=== PATIENT | male | born 1970 | race African-American/Black ===

== ENCOUNTER → 2019-02-05 | Outpatient (CLI) | payer MEDICARE, MEDICAID | END | disposition home or self-care (01) | LOC: CARD 09:41 | PROVIDERS: ATTEND Psychiatry & Neurology Neurology | DX: G40.919 Epilepsy, unspecified, intractable, without status epilepticus (principal) ==

== ENCOUNTER 2022-10-17 13:15 | Emergency (ER) | payer MEDICARE, MEDICAID ==
[~2022-10-17] VITALS: Ht 172.7 cm; Wt 86.0 kg
[2022-10-17 13:22] VITALS: BP 166/84
[2022-10-17 15:13] LABS: CHLORIDE 99 mEq/L (98-107)
[2022-10-17 15:19] LABS: BASOPHILS % 0.6 % (0.0-2.0); EOSINOPHILS % 0.1 % (0.0-5.0); HEMATOCRIT. 41.3 % (42.0-52.0); HEMOGLOBIN. 13.8 g/dL (14.0-18.0); LYMPHOCYTES % 17.7 % (20.0-50.0); MEAN CORPUSCULAR HEMOGLOBIN 28.6 pg (28.0-32.0); MEAN CORPUSCULAR VOLUME 85.9 fL (80.0-94.0); MEAN PLATELET VOLUME 8.2 fl (7.4-10.4); MONOCYTES % 7.7 % (2.0-8.0); NEUTROPHILS % 73.9 % (40.0-76.0); PLATELET 224 x1000/uL (130-400); RED BLOOD CELL COUNT 4.81 mill/uL (4.7-6.1); RED CELL DISTRIBUTION WIDTH 13.5 % (11.6-14.6)
== END 2022-10-17 20:37 | disposition home or self-care (01) ==
LOC: ER 13:15
DX: G40.509 Epileptic seizures related to external causes, not intractable, without status epilepticus (principal); I10 Essential (primary) hypertension; Z88.0 Allergy status to penicillin; Z98.890 Other specified postprocedural states; Z86.59 Personal history of other mental and behavioral disorders
CPT/HCPCS: 36415; 71045; 80053; 84484; 85025; 93005; 99285

== ENCOUNTER 2024-04-29 17:05 | Inpatient (IN) | payer MEDICARE, MEDICAID ==
[~2024-04-29] VITALS: Ht 170.2 cm; Wt 89.0 kg
[2024-04-29 18:25] LABS: BASOPHILS % 0.1 % (0.0-2.0); HEMATOCRIT. 40.1 % (42.0-52.0); HEMOGLOBIN. 13.3 g/dL (14.0-18.0); LYMPHOCYTES % 9.3 % (20.0-50.0); MEAN CORPUSCULAR HEMOGLOBIN 28.1 pg (28.0-32.0); MEAN CORPUSCULAR VOLUME 84.9 fL (80.0-94.0); MEAN PLATELET VOLUME 8.6 fl (7.4-10.4); MONOCYTES % 4.4 % (2.0-8.0); NEUTROPHILS % 86.2 % (40.0-76.0); PLATELET 150 x1000/uL (130-400); RED BLOOD CELL COUNT 4.72 mill/uL (4.7-6.1); RED CELL DISTRIBUTION WIDTH 14.3 % (11.6-14.6); WHITE BLOOD COUNT 10.7 x1000/uL (4.5-11.0)
[2024-04-29 18:28] LABS: CHLORIDE 90 mEq/L (98-107); POTASSIUM 3.5 mEq/L (3.5-5.1); SODIUM 122 mEq/L (136-145)
[2024-04-29 18:29] LABS: CALCIUM 9.3 mg/dL (8.7-10.4); CARBON DIOXIDE 24 mEq/L (21-32)
[2024-04-29 18:34] LABS: CREATININE 0.9 mg/dL (0.6-1.3); GLUCOSE 147 mg/dL (70-105); UREA NITROGEN BLOOD 10 mg/dL (9-23)
[2024-04-29] MEDS: DIVALPROEX SODIUM 250MG ER TABLET PO ONE (19:00)
[2024-04-29 19:47] LABS: URIC ACID 2.3 mg/dL (3.7-9.2)
[2024-04-29 19:50] LABS: ALANINE AMINOTRANSFERASE 16 IU/L (10-49); ALBUMIN 4.2 g/dL (3.2-4.8); ASPARTATE AMINOTRANSFERASE 17 IU/L (<34); BILIRUBIN DIRECT 0.1 mg/dL (<=3.0); BILIRUBIN TOTAL 0.3 mg/dL (0.1-1.0); PHOSPHORUS 2.3 mg/dL (2.5-4.9); PROTEIN TOTAL 7.5 g/dL (6.0-8.3)
[2024-04-29 19:53] LABS: THYROID STIMULATING HORMONE 1.81 uIU/mL (0.55-4.78)
[2024-04-29] MEDS ORDERED: AZITHROMYCIN 500MG/250ML 250 ML IV SCH (20:30)
[2024-04-29] MEDS: SODIUM CHLORIDE 0.9% 1,000 ML IV ONE (21:54)
[2024-04-29] MEDS: CEFTRIAXONE 2GM/50ML 50 ML IV ONE (22:13)
[2024-04-29] MEDS: CARBAMAZEPINE 100MG TABLET CHEW PO ONE (22:15)
[2024-04-30] MEDS: AZITHROMYCIN 500 MG in SODIUM CHLORIDE 0.9% 250 ML IV SCH (01:24)
[2024-04-30 04:00] VITALS: BP 162/92; PULSE 73; RESP 18; TEMP 35.66952; O2SAT 96
[2024-04-30] MEDS ORDERED: CLONIDINE 0.1MG TABLET PO PRN (09:30)
[2024-04-30] MEDS ORDERED: ACETAMINOPHEN 325MG TABLET PO PRN ×2 (09:30)
[2024-04-30] MEDS ORDERED: LORAZEPAM 2MG/ML INJ IV PRN (09:30)
[2024-04-30] MEDS ORDERED: ONDANSETRON HCL 4MG/2ML INJ IV PRN (09:30)
[2024-04-30] MEDS ORDERED: HYDRALAZINE 20MG/ML VIAL IV PRN (09:30)
[2024-04-30 09:46] LABS: CLARITY URINE CLEAR (CLEAR); COLOR URINE YELLOW (YELLOW); GLUCOSE URINE NEGATIVE (NEGATIVE); KETONES URINE 1+ (NEGATIVE); LEUKOCYTE ESTERASE URINE NEGATIVE (NEGATIVE); NITRITE URINE NEGATIVE (NEGATIVE); OCCULT BLOOD URINE NEGATIVE (NEGATIVE); PH URINE 7.5 (4.5-8.0); PROTEIN URINE NEGATIVE (NEGATIVE); SPECIFIC GRAVITY URINE 1.021 (1.005-1.030)
[2024-04-30] MEDS: SODIUM CHLORIDE 0.9% 1,000 ML IV SCH (09:54)
[2024-04-30] MEDS: NIFEDIPINE XL 60MG TAB PO SCH (09:54)
[2024-04-30 10:17] LABS: CREATININE URINE RANDOM 191.7 mg/dL
[2024-04-30 13:56] VITALS: BP 151/89; PULSE 63; RESP 20; TEMP 36.8072
[2024-04-30] MEDS ORDERED: SODIUM CHLORIDE 0.9% 3ML FLUSH IVF SCH (14:00)
[2024-04-30 15:36] VITALS: BP 151/81; PULSE 61; RESP 17; TEMP 36.72516; O2SAT 97
[2024-04-30] MEDS: DIPHENHYDRAMINE 50MG/ML VIAL IV PRN (16:43)
[2024-04-30 16:51] VITALS: BP 126/77
[2024-04-30] MEDS: DIVALPROEX SODIUM 500MG DR TABLET PO SCH (17:08)
[2024-04-30] MEDS: CARBAMAZEPINE 200MG TABLET PO SCH (17:08)
[2024-04-30] MEDS ORDERED: CARB300C9 MT (18:30)
[2024-04-30] MEDS ORDERED: RISP-29 MT (18:31)
[2024-04-30] MEDS ORDERED: ROSU40TA MT (18:31)
[2024-04-30] MEDS ORDERED: NIFE-32 MT (18:34)
[2024-04-30] MEDS ORDERED: NIFE20CA8 MT (18:34)
[2024-04-30] MEDS ORDERED: MONT-46 MT (18:34)
[2024-04-30] MEDS ORDERED: DIVA500T51 MT (18:34)
[2024-04-30] MEDS ORDERED: LOSA100T33 MT (18:35)
[2024-04-30] MEDS ORDERED: ATEN50TA MT (18:36)
[2024-04-30] MEDS ORDERED: HYDR12.54 MT (18:36)
[2024-04-30] MEDS ORDERED: TEMA15CA PO (18:37)
[2024-04-30 20:00] VITALS: BP 141/82; PULSE 66; RESP 15; TEMP 36.78072; O2SAT 97
[2024-04-30] MEDS: ATORVASTATIN CALCIUM 40MG TABLET PO SCH (21:24)
[2024-04-30] MEDS: RISPERIDONE 1MG TABLET PO SCH (21:24)
[2024-05-01] VITALS: BP 120/70; PULSE 55; RESP 16; TEMP 36.61404; O2SAT 96
[2024-05-01 04:00] VITALS: BP 116/69; PULSE 48; RESP 12; O2SAT 97
[2024-05-01 06:35] LABS: AMMONIA < 17 uMol/L (<32)
[2024-05-01 06:53] LABS: CALCIUM 8.9 mg/dL (8.7-10.4); CARBON DIOXIDE 27 mEq/L (21-32); CHLORIDE 97 mEq/L (98-107); POTASSIUM 3.8 mEq/L (3.5-5.1)
[2024-05-01 06:57] LABS: CREATININE 0.9 mg/dL (0.6-1.3); GLUCOSE 84 mg/dL (70-105)
[2024-05-01 06:58] LABS: CARBAMAZEPINE 10.7 ug/mL (4-12); UREA NITROGEN BLOOD 9 mg/dL (9-23)
[2024-05-01 06:59] LABS: VALPROIC ACID 62.8 ug/mL (50-100)
[2024-05-01 07:00] LABS: PHOSPHORUS 3.7 mg/dL (2.5-4.9)
[2024-05-01 07:12] LABS: SODIUM 130 mEq/L (136-145)
[2024-05-01 08:00] VITALS: BP 155/96; PULSE 70; RESP 16; TEMP 36.72516; O2SAT 99
[2024-05-01] MEDS: DIVALPROEX SODIUM 500MG DR TABLET PO SCH (09:49)
[2024-05-01 12:00] VITALS: BP 124/74; PULSE 56; RESP 17; TEMP 36.89184; O2SAT 93
[2024-05-01 16:00] VITALS: BP 130/60; PULSE 67; RESP 18; TEMP 36.61404; O2SAT 98
[2024-05-01 20:00] VITALS: BP 142/82; PULSE 69; RESP 16; TEMP 36.78072; O2SAT 96
[2024-05-02] VITALS (7 sets, daily range): BP systolic 99–160; BP diastolic 61–89; PULSE 57–82; RESP 12–20; TEMP 36.55848–36.78072; O2SAT 94–98
[2024-05-02 06:56] LABS: CARBON DIOXIDE 26 mEq/L (21-32); CHLORIDE 96 mEq/L (98-107); POTASSIUM 3.5 mEq/L (3.5-5.1); SODIUM 130 mEq/L (136-145)
[2024-05-02 07:01] LABS: CREATININE 0.8 mg/dL (0.6-1.3); UREA NITROGEN BLOOD 6 mg/dL (9-23)
[2024-05-02 07:02] LABS: GLUCOSE 87 mg/dL (70-105)
[2024-05-02 07:03] LABS: ALBUMIN 3.5 g/dL (3.2-4.8); BASOPHILS % 0.5 % (0.0-2.0); EOSINOPHILS % 0.4 % (0.0-5.0); HEMATOCRIT. 36.2 % (42.0-52.0); HEMOGLOBIN. 12.2 g/dL (14.0-18.0); LYMPHOCYTES % 35.2 % (20.0-50.0); MEAN CORPUSCULAR HEMOGLOBIN 28.8 pg (28.0-32.0); MEAN CORPUSCULAR HGB CONC 33.6 g/dL (31.0-37.0); MEAN CORPUSCULAR VOLUME 85.6 fL (80.0-94.0); MONOCYTES % 12.3 % (2.0-8.0); NEUTROPHILS % 51.6 % (40.0-76.0); PLATELET 154 x1000/uL (130-400); RED BLOOD CELL COUNT 4.23 mill/uL (4.7-6.1); RED CELL DISTRIBUTION WIDTH 13.9 % (11.6-14.6); WHITE BLOOD COUNT 6.5 x1000/uL (4.5-11.0)
[2024-05-02 07:04] LABS: ALANINE AMINOTRANSFERASE 14 IU/L (10-49); ASPARTATE AMINOTRANSFERASE 18 IU/L (<34); BILIRUBIN DIRECT 0.1 mg/dL (<=3.0); BILIRUBIN TOTAL 0.4 mg/dL (0.1-1.0); PHOSPHORUS 3.7 mg/dL (2.5-4.9); PROTEIN TOTAL 6.6 g/dL (6.0-8.3)
[2024-05-02] MEDS: MAGNESIUM 2 G PREMIX 50 ML IV NR (14:13)
[2024-05-03] VITALS: BP 129/80; PULSE 60; RESP 12; TEMP 36.55848; O2SAT 93
[2024-05-03 04:00] VITALS: BP 143/72; PULSE 59; RESP 12; O2SAT 97
[2024-05-03 08:00] VITALS: BP 145/86; PULSE 78; RESP 18; TEMP 36.72516; O2SAT 100
[2024-05-03 12:00] VITALS: BP 132/80; PULSE 75; RESP 15; TEMP 36.6696; O2SAT 100
[2024-05-03 16:00] VITALS: BP 156/91; PULSE 78; RESP 19; TEMP 36.83628; O2SAT 97
[2024-05-03 17:03] LABS: BASOPHILS % 0.5 % (0.0-2.0); EOSINOPHILS % 0.3 % (0.0-5.0); HEMATOCRIT. 38.6 % (42.0-52.0); HEMOGLOBIN. 12.9 g/dL (14.0-18.0); LYMPHOCYTES % 29.1 % (20.0-50.0); MEAN CORPUSCULAR HEMOGLOBIN 28.7 pg (28.0-32.0); MEAN CORPUSCULAR HGB CONC 33.5 g/dL (31.0-37.0); MEAN CORPUSCULAR VOLUME 85.6 fL (80.0-94.0); MEAN PLATELET VOLUME 7.7 fl (7.4-10.4); MONOCYTES % 9.1 % (2.0-8.0); PLATELET 198 x1000/uL (130-400); RED CELL DISTRIBUTION WIDTH 14.2 % (11.6-14.6); WHITE BLOOD COUNT 6.5 x1000/uL (4.5-11.0)
[2024-05-03 17:09] LABS: CARBON DIOXIDE 26 mEq/L (21-32); CHLORIDE 96 mEq/L (98-107); POTASSIUM 3.6 mEq/L (3.5-5.1); SODIUM 129 mEq/L (136-145)
[2024-05-03 17:10] LABS: CALCIUM 9.3 mg/dL (8.7-10.4)
[2024-05-03 17:14] LABS: CREATININE 0.8 mg/dL (0.6-1.3); GLUCOSE 103 mg/dL (70-105)
[2024-05-03 17:15] LABS: UREA NITROGEN BLOOD 7 mg/dL (9-23)
[2024-05-03 20:00] VITALS: BP 124/83; PULSE 65; RESP 14; TEMP 36.89184; O2SAT 96
[2024-05-03] MEDS: LACOSAMIDE 100MG TABLET PO SCH (20:53)
[2024-05-04] VITALS: BP 150/35; PULSE 64; RESP 16; TEMP 36.6696; O2SAT 97
[2024-05-04 04:00] VITALS: BP 110/73; PULSE 60; RESP 18; TEMP 36.61404; O2SAT 96
[2024-05-04 07:26] LABS: CHLORIDE 96 mEq/L (98-107); POTASSIUM 3.7 mEq/L (3.5-5.1); SODIUM 131 mEq/L (136-145)
[2024-05-04 07:27] LABS: CARBON DIOXIDE 28 mEq/L (21-32)
[2024-05-04 07:32] LABS: CREATININE 0.9 mg/dL (0.6-1.3); GLUCOSE 81 mg/dL (70-105); UREA NITROGEN BLOOD 7 mg/dL (9-23)
[2024-05-04 08:00] VITALS: BP 154/94; PULSE 68; RESP 11; TEMP 36.6696; O2SAT 96
[2024-05-04 08:04] LABS: BASOPHILS % 0.4 % (0.0-2.0); EOSINOPHILS % 0.4 % (0.0-5.0); HEMATOCRIT. 35.6 % (42.0-52.0); HEMOGLOBIN. 12.2 g/dL (14.0-18.0); LYMPHOCYTES % 36.7 % (20.0-50.0); MEAN CORPUSCULAR HGB CONC 34.2 g/dL (31.0-37.0); MEAN CORPUSCULAR VOLUME 84.8 fL (80.0-94.0); MEAN PLATELET VOLUME 7.7 fl (7.4-10.4); MONOCYTES % 10.7 % (2.0-8.0); NEUTROPHILS % 51.8 % (40.0-76.0); PLATELET 187 x1000/uL (130-400); RED CELL DISTRIBUTION WIDTH 13.9 % (11.6-14.6); WHITE BLOOD COUNT 5.8 x1000/uL (4.5-11.0)
[2024-05-04 12:00] VITALS: BP 126/88; PULSE 61; RESP 11; TEMP 36.72516; O2SAT 99
[2024-05-04 16:00] VITALS: BP 143/84; PULSE 60; RESP 15; TEMP 36.89184; O2SAT 96
[2024-05-04 20:00] VITALS: BP 153/98; PULSE 74; RESP 18; TEMP 37.05852; O2SAT 94
[2024-05-05] VITALS: BP 123/76; PULSE 60; RESP 20; TEMP 36.78072; O2SAT 95
[2024-05-05 04:00] VITALS: BP 126/88; PULSE 57; RESP 20; TEMP 36.61404; O2SAT 97
[2024-05-05 06:50] LABS: CARBON DIOXIDE 27 mEq/L (21-32); CHLORIDE 99 mEq/L (98-107); POTASSIUM 3.9 mEq/L (3.5-5.1); SODIUM 133 mEq/L (136-145)
[2024-05-05 06:52] LABS: CALCIUM 9.6 mg/dL (8.7-10.4)
[2024-05-05 06:56] LABS: CREATININE 0.8 mg/dL (0.6-1.3); GLUCOSE 84 mg/dL (70-105); UREA NITROGEN BLOOD 6 mg/dL (9-23)
[2024-05-05 07:06] LABS: BASOPHILS % 0.4 % (0.0-2.0); EOSINOPHILS % 0.5 % (0.0-5.0); HEMATOCRIT. 39.2 % (42.0-52.0); HEMOGLOBIN. 13.1 g/dL (14.0-18.0); LYMPHOCYTES % 38.2 % (20.0-50.0); MEAN CORPUSCULAR HEMOGLOBIN 28.7 pg (28.0-32.0); MEAN CORPUSCULAR HGB CONC 33.5 g/dL (31.0-37.0); MEAN CORPUSCULAR VOLUME 85.8 fL (80.0-94.0); MEAN PLATELET VOLUME 7.6 fl (7.4-10.4); MONOCYTES % 11.3 % (2.0-8.0); NEUTROPHILS % 49.6 % (40.0-76.0); PLATELET 208 x1000/uL (130-400); RED BLOOD CELL COUNT 4.57 mill/uL (4.7-6.1); RED CELL DISTRIBUTION WIDTH 14.1 % (11.6-14.6)
[2024-05-05 08:00] VITALS: BP 136/82; PULSE 113; RESP 23; TEMP 36.83628; O2SAT 97
[2024-05-05 12:00] VITALS: BP 135/91; PULSE 80; RESP 16; TEMP 36.72516; O2SAT 97
[2024-05-05] MEDS ORDERED: DIVA-18 PO ×2 (14:09)
[2024-05-05] MEDS ORDERED: LACO100T2 PO (14:09)
[2024-05-05 14:41] VITALS: BP 135/91; PULSE 80; TEMP 98.1; O2SAT 97
== END 2024-05-05 15:56 | disposition home health service (06) | DRG 640 ==
LOC: ER 17:05 → EDBEDREQ 22:14 → EDBEDREQTM 22:14 → 5WST 23:51 → 3WST 04-30 14:21
PROVIDERS: ADMIT Internal Medicine; ATTEND Internal Medicine
PROC: 4A10X4Z Monitoring of Central Nervous Electrical Activity, External Approach (ICD-10-PCS; principal; 2024-05-01)
DX: E87.1 Hypo-osmolality and hyponatremia (principal); G93.41 Metabolic encephalopathy; I10 Essential (primary) hypertension; E78.00 Pure hypercholesterolemia, unspecified; Z20.822 Contact with and (suspected) exposure to COVID-19; G80.9 Cerebral palsy, unspecified; G40.909 Epilepsy, unspecified, not intractable, without status epilepticus; F79 Unspecified intellectual disabilities; Z88.0 Allergy status to penicillin
CPT/HCPCS: 36415; 71045; 74176; 80048; 80076; 80156; 80165; 80339; 81003; 82140; 82533; 82570; 83735; 83930; 83935; 84100; 84300; 84443; 84540; 84550; 84560; 85025; 87426; 93005; 95816; 99291; J0456; J0696; J1200; J3475; J7030; J7050